=== PATIENT | male | born 1970 | race Caucasian/White ===

== ENCOUNTER 2023-07-18 06:27 | Day surgery (SDC) | payer OTHER, SELFPAY ==
[2023-07-18] VITALS (10 sets, daily range): BP systolic 122–155; BP diastolic 67–104; BMI 29.1
[2023-07-18] MEDS: NORMOSOL-R 1000 IV (08:10)
[2023-07-18] MEDS: TYLENOL 650 MG PO (13:25)
== END 2023-07-18 14:40 | disposition home or self-care (01) ==
LOC: SDS 06:27
PROVIDERS: ATTENDING PHYSICIAN Otolaryngology; FAMILY PHYSICIAN Nurse Practitioner Family
DX: H65.90 Unspecified nonsuppurative otitis media, unspecified ear (principal); J34.2 Deviated nasal septum; J32.9 Chronic sinusitis, unspecified; J33.0 Polyp of nasal cavity
CPT/HCPCS: 31257; 31267; 30520; 69436; 88304; 88311; 87070; L8699

== ENCOUNTER → 2023-08-19 07:23 | Outpatient (REF) | payer OTHER, SELFPAY | LOC: RAD 07:23 | PROVIDERS: ATTENDING PHYSICIAN Internal Medicine Critical Care Medicine; FAMILY PHYSICIAN Nurse Practitioner Family | DX: R91.1 Solitary pulmonary nodule (principal) | CPT/HCPCS: 71250 ==

== ENCOUNTER → 2023-09-21 09:42 | Outpatient (REF) | payer OTHER, SELFPAY | LOC: CLAB 09:42 | PROVIDERS: ATTENDING PHYSICIAN Otolaryngology | DX: J32.8 Other chronic sinusitis (principal); J30.9 Allergic rhinitis, unspecified | CPT/HCPCS: 87070; 87147; 87186 ==

== ENCOUNTER → 2023-12-02 07:17 | Outpatient (REF) | payer OTHER, SELFPAY | LOC: HWRAD 07:17 | PROVIDERS: ATTENDING PHYSICIAN Internal Medicine Critical Care Medicine; FAMILY PHYSICIAN Nurse Practitioner Family | DX: J47.9 Bronchiectasis, uncomplicated (principal) | CPT/HCPCS: 71250 ==

== ENCOUNTER 2023-12-21 06:30 | Day surgery (SDC) | payer OTHER, SELFPAY ==
[2023-12-06 07:18] VITALS: BMI 29.8
[2023-12-06 10:13] LABS: Hematocrit 45.8 % (39.0-52.0); Mean Corp Hgb Conc. 32.8 g/dL (33.0-37.0); Mean Corpuscular Volume 85.6 fL (80.0-94.0); Mean Platelet Volume 10.1 fL (7.4-10.4); Platelet Count 253 10^3/uL (130-400); Red Blood Cell Count 5.35 10^6/uL (4.70-6.10); Red Cell Dist. Width 13.5 % (11.5-14.5); White Blood Cell Count 7.8 10^3/uL (4.8-10.8)
[2023-12-06 10:24] LABS: APTT 30.4 Sec (23.4-35.0)
[2023-12-06 10:54] LABS: Blood Urea Nitrogen 19 mg/dl (9-20); Carbon Dioxide 25 mmol/L (22-30); Chloride 108 mmol/L (98-107); Estimated Creatinine Clearance 84 ml/min; Glucose 84 mg/dl (70-99); Potassium 5.2 mmol/L (3.5-5.1); Sodium 144 mmol/L (135-145); eGFR > 60.00
[2023-12-21] VITALS (10 sets, daily range): BP systolic 113–160; BP diastolic 78–96; BMI 31.0
[2023-12-21 16:45] LABS: BAL Lymphocytes 1.5 %; BAL Macrophages 4.5 %; BAL Neutrophils 94 %; Brochalveolar Lavage Character Hazy (Clear); Brochalveolar Lavage Color Colorless; Brochalveolar Lavage Volume 9 ml; Brochalveolar Lavage WBC 121000 cells/ml
== END 2023-12-21 14:41 | disposition home or self-care (01) ==
LOC: GI 06:30
PROVIDERS: ATTENDING PHYSICIAN Internal Medicine Critical Care Medicine; FAMILY PHYSICIAN Nurse Practitioner Family
DX: J84.9 Interstitial pulmonary disease, unspecified (principal); R91.8 Other nonspecific abnormal finding of lung field
CPT/HCPCS: 31625; 31623; 31624; 31627; 31654; 88305; 36415; 71045; 80048; 85027; 85610; 85730; 87015; 87070; 87102; 87116; 87205; 88112; 89051; 93005; 94640; C1887

== ENCOUNTER → 2024-01-23 08:26 | Outpatient (REF) | payer OTHER, SELFPAY | LOC: RST 08:26 | PROVIDERS: ATTENDING PHYSICIAN Internal Medicine Critical Care Medicine; FAMILY PHYSICIAN Nurse Practitioner Family | DX: R04.2 Hemoptysis (principal); J41.8 Mixed simple and mucopurulent chronic bronchitis; J47.9 Bronchiectasis, uncomplicated | CPT/HCPCS: 74230; 92611 ==

== ENCOUNTER → 2024-06-28 13:30 | Outpatient (REF) | payer OTHER, SELFPAY | LOC: CLAB 13:30 | PROVIDERS: ATTENDING PHYSICIAN Otolaryngology | DX: J32.8 Other chronic sinusitis (principal) | CPT/HCPCS: 87070; 87077; 87102; 87205; 87206 ==

== ENCOUNTER 2024-10-27 07:27 | Emergency (ER) | payer OTHER, SELFPAY ==
[2024-10-27] VITALS (8 sets, daily range): BP systolic 146–165; BP diastolic 87–103; BMI 31.1
--- NOTE | 2024-10-27 07:42 | ED.GENMED ---
History of Present Illness
General
Chief Complaint: Pneumonia Symptoms
Source: patient
Exam Limitations: none
Time Seen by Provider: 10/27/24 07:41
Nursing documentation reviewed up to this point in time: agreed with
History of Present Illness
History of Present Illness:
54-year-old male with history of HLD, PR has chronic cough 2 1/2 years, , cough worsened 5 days ago, keeping him up at night, 4 days ago [place] feverish, chills, sweats, went to [facility], had chest xray, diagnosed with PNA and put on Amoxicillin 500
mg 2 tabs TID, Cefdinir 300 mg 2 pills HS, Prednisone 60 mg daily x 5 days, Tessalon Perles 100 mg TID x 5 days. States cough is a little improved, less moist.
Had a cough spell yesterday a.m. and sudden pain, points to left mid sterno-costal area and was unable to sleep last night due to pain.
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
Multiple nasal polyps found, started on Nucala 8 months ago and had multiple nasal polyps removed
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
W/U by Pulm. Dr. Menjivar had bronchoscopy and 'wash out' with improvement of cough for 5 days, then cough returned. Has had multiple scans, imaging, with no conclusive diagnosis.
Past History
Past History
ED Past Medical History: Other (Myocardial bridge)
ED Past Surgical History: Orthopedic and Other (Brnchoscopy, wedge resection R lung 2004)
Social History
Tobacco: Non-smoker
Alcohol: Occasional
Drug: None
Personal:
Living: with family
Employment: Employed
Family History
Family History: Hypertension
Review of Systems
Review of Systems
Allergies reviewed?: Yes
All Other Systems: ROS reviewed and negative except as documented in HPI and ROS
Respiratory: Reports cough
Cardiac: Reports chest pain
ABD/GI: Denies abdominal pain
Phy Exam
Physical Exam
Physical Exam:
GENERAL: No acute distress. A&Ox3.
CONSTITUTIONAL: Afebrile.
EYES: clear, conjunctivae normal
ENMT: moist mucus membranes, Pharynx nl
RESPIRATORY: Regular respirations, nonlabored, lungs clear. Occasional cough
CARDIOVASCULAR: Regular rate and rhythm, no murmurs, no rubs.
GI: Soft, nontender, normal BS
MUSCULOSKELETAL: Point tender mid left costo-sternal border. Moves with ease. Well perfused.
SKIN: Warm, dry, pink
PSYCH: Normal mood and affect. Well kept, interactive and appropriate
NEUROLOGIC: Awake, alert and oriented. No focal neurological deficits
Course
Orders/Labs/Results
Orders:
Orders
10/27/24 07:32
CR Ribs-left 3 Vw W/pa Chest Urgent
Comment:
Reason For Exam: L anterior rib pain and popping after coughing
10/27/24 07:57
Complete Blood Count/With Diff Urgent
Comprehensive Metabolic Panel Urgent
NT-proBNP Urgent
PTT Urgent
Prothrombin Time Urgent
Troponin I Urgent
10/27/24 08:25
Ketorolac [Toradol] 15 mg IV NOW STA
Abnormal Lab Results
10/27/24
07:57
WBC 17.1 H 10^3/uL
(4.8-10.8)
Abs Immat Gran (auto) 0.1 H 10^3/uL
(0-0.05)
Absolute Neuts (auto) 12.4 H 10^3/uL
(1.4-6.5)
Absolute Monos (auto) 1.3 H 10^3/uL
(0.1-0.6)
Immature Gran % 0.8 H %
(0-0.5)
Lymphocytes % 19.1 L %
(20.5-51.1)
Sodium 146 H mmol/L
(135-145)
Chloride 111 H mmol/L
(98-107)
BUN 22 H mg/dl
(9-20)
ALT 51 H U/L
(0-50)
10/27/24 07:57
10/27/24 07:57
Vital Signs
Initial and Last Documented VS:
Initial Vital Signs
Temp Pulse Resp BP Pulse Ox
98.6 F 97 18 155/93 97
10/27/24 07:28 10/27/24 07:28 10/27/24 07:28 10/27/24 07:28 10/27/24 07:28
Last Documented Vital Signs
Temp Pulse Resp BP Pulse Ox
98.5 F 99 23 149/87 96
10/27/24 08:35 10/27/24 10:15 10/27/24 10:15 10/27/24 10:00 10/27/24 10:15
MDM/Problems Addressed
Differential Diagnosis Includes:
PNA, bronchitis, sternocostal sprain/strain.
MDM/Problems Addressed:
54-year-old male with history of HLD, PR has chronic cough 2 1/2 years, , cough worsened 5 days ago, keeping him up at night, 4 days ago [place] feverish, chills, sweats, went to [facility], had chest xray, diagnosed with PNA and put on Amoxicillin 500
mg 2 tabs TID, Cefdinir 300 mg 2 pills HS, Prednisone 60 mg daily x 5 days, Tessalon Perles 100 mg TID x 5 days. States cough is a little improved, less moist.
Had a cough spell yesterday a.m. and sudden pain, points to left mid sterno-costal area and was unable to sleep last night due to pain.
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
Multiple nasal polyps found, started on Nucala 8 months ago and had multiple nasal polyps removed
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
W/U by Pulm. Dr. Menjivar had bronchoscopy and 'wash out' with improvement of cough for 5 days, then cough returned. Has had multiple scans, imaging, with no conclusive diagnosis.
Afebrile, NAD
CXR radiology report reviewed:
IMPRESSION:
No findings to confirm recent left rib fracture.
Mild left perihilar opacity which could represent pneumonitis.
8:30 a.m.
CBC: WBC 17.1 (most likely from PNA, stress/reactive and also prednisone)
CMP unremarkable
Troponin WNL
BNP WNL
Pt on proper antibiotics, Prednisone and cough suppressant. Stable for discharge.
No history of HTN, BP 147/97 at discharge
*Critical Care Note
Total Time (30-74mins, 75-104mins- exclusive of procedures): Not Applicable
ED Attending Note
-
Portions of this chart may have been created with voice recognition software.� Occasional wrong word or��sound alike� substitutions may have occurred due to the inherent limitations of voice recognition software.
Discharge Plan
Departure
Patient Disposition: Home (Routine Discharge)
Date of Disposition: 10/27/24
Time of Disposition: 08:43
Patient with high blood pressure during this ER visit?: No
Condition: Good
Discharge Problem:
Sprain of costal cartilage without injury to sternum
Instructions: Sprains
Prescriptions:
No Action
coenzyme Q10 [Co Q-10] 100 mg Capsule
100 mg PO DAILY
loratadine [Claritin] 10 mg Tablet
10 mg PO DAILY
rosuvastatin 20 mg Tablet
20 mg PO DAILY
itraconazole
40 mg intranasal DAILY
Rx Instructions:
Nasal rinse
mometasone
1 mg intranasal DAILY
Rx Instructions:
nasal rinse
Referrals:
Gavin Thompson CRNP [Family Provider] - As needed
Activity Restrictions/Additional Instructions:
As we discussed, your chest xray shows mild pneumonia left lung.
Continue your current meds.
Cold compress to area 20 minutes off and on today and tomorrow, then heat pad or warm moist compresses
Splint the area with your hand or a small pillow when you cough.
Ibuprofen 600 mg every 6 hours as needed for pain
Interventions
Interventions:
*Risk Screen - Suicide Last Done: 10/27/24 07:28
*General Assessment Last Done: 10/27/24 07:28
*Neglect/Abuse Screening Last Done: 10/27/24 08:35
*ED- Fall Risk Assessment Last Done: 10/27/24 08:35
*ED COVID-19 Vaccine History Last Done: 10/27/24 08:35
*Nursing Disposition Last Done: 10/27/24 10:32
ED- Cardiac Assessment Last Done: 10/27/24 08:35
ED- Pulmonary Assessment Last Done: 10/27/24 08:35
Discharge Date and Time
Discharge Date/Time: 10/27/24 10:41
Print Language: [id number]
[2024-10-27 08:06] LABS: % Basophils 0.4 % (0-2); % Eosinophils 0.2 % (0-6); % Immature Granulocytes 0.8 % (0-0.5); % Lymphocytes 19.1 % (20.5-51.1); % Monocytes 7.3 % (1.7-9.3); % Neutrophils 72.2 % (42.2-75.2); Absolute Basophils 0.1 10^3/uL (0-0.2); Absolute Immature Granulocytes 0.1 10^3/uL (0-0.05); Absolute Lymphocytes 3.3 10^3/uL (1.2-3.4); Absolute Monocytes 1.3 10^3/uL (0.1-0.6); Absolute Neutrophils 12.4 10^3/uL (1.4-6.5); Hematocrit 43.6 % (39.0-52.0); Hemoglobin 14.5 g/dL (13.0-18.0); Mean Corp Hgb Conc. 33.3 g/dL (33.0-37.0); Mean Corpuscular Hgb 28.2 pg (27.0-31.0); Mean Corpuscular Volume 84.8 fL (80.0-94.0); Mean Platelet Volume 8.9 fL (7.4-10.4); Nucleated Red Blood Cells % 0 % (-); Platelet Count 369 10^3/uL (130-400); Red Blood Cell Count 5.14 10^6/uL (4.70-6.10); Red Cell Dist. Width 13.2 % (11.5-14.5); White Blood Cell Count 17.1 10^3/uL (4.8-10.8)
[2024-10-27 08:13] LABS: INR 0.97; PT 13.2 Sec (11.4-14.6)
[2024-10-27 08:14] LABS: APTT 26.7 Sec (23.4-35.0)
[2024-10-27 08:16] LABS: ALT (SGPT) 51 U/L (0-50); AST (SGOT) 25 U/L (17-59); Albumin 4.3 g/dl (3.5-5.0); Alkaline Phosphatase 46 U/L (38-126); Blood Urea Nitrogen 22 mg/dl (9-20); Calcium 9.2 mg/dl (8.4-10.2); Carbon Dioxide 26 mmol/L (22-30); Chloride 111 mmol/L (98-107); Estimated Creatinine Clearance 95 ml/min; Glucose 90 mg/dl (70-99); Sodium 146 mmol/L (135-145); Total Bilirubin 0.4 mg/dl (0.2-1.3); Total Protein 7.1 g/dl (6.3-8.2); eGFR > 60.00
[2024-10-27 08:28] LABS: NT-proBNP 69.5 pg/ml; Troponin I < 0.012 ng/ml
[2024-10-27] MEDS: TORADOL 15 MG IV (10:19)
== END 2024-10-27 10:41 | disposition home or self-care (01) ==
LOC: EMR 07:27
PROVIDERS: Registered Nurse; EMERGENCY PHYSICIAN Emergency Medicine; FAMILY PHYSICIAN Nurse Practitioner Family
DX: S23.41XA Sprain of ribs, initial encounter (principal); X58.XXXA Exposure to other specified factors, initial encounter; R05.3 Chronic cough; J18.9 Pneumonia, unspecified organism; E78.5 Hyperlipidemia, unspecified; Q24.5 Malformation of coronary vessels; I25.2 Old myocardial infarction; Z88.1 Allergy status to other antibiotic agents; Z91.048 Other nonmedicinal substance allergy status
CPT/HCPCS: 99284; 96374; 71101; 80053; 83880; 84484; 85025; 85610; 85730

== ENCOUNTER → 2024-12-27 14:20 | Outpatient (REF) | payer OTHER, SELFPAY | LOC: CLAB 14:20 | PROVIDERS: ATTENDING PHYSICIAN Otolaryngology | DX: J32.8 Other chronic sinusitis (principal) | CPT/HCPCS: 87070; 87147; 87205 ==

== ENCOUNTER → 2024-12-28 14:39 | Outpatient (REF) | payer OTHER, SELFPAY | LOC: HWRAD 14:39 | PROVIDERS: ATTENDING PHYSICIAN Internal Medicine Critical Care Medicine; FAMILY PHYSICIAN Nurse Practitioner Family | DX: J47.9 Bronchiectasis, uncomplicated (principal) | CPT/HCPCS: 71250 ==